=== PATIENT | female | born 1960 | race Caucasian/White ===

== ENCOUNTER 2018-04-14 19:01 | Emergency (ER) | payer OTHER ==
[~2018-04-14] VITALS: Ht 160 cm; Wt 66.2 kg
[2018-04-14 20:16] LABS: ABSOLUTE BASOPHIL COUNT 0.1 /CUMM (0.0-0.2); ABSOLUTE EOSINOPHIL COUNT 0.3 /CUMM (0.0-0.7); ABSOLUTE GRANULOCYTE CT 5.2 /CUMM (1.4-6.5); ABSOLUTE LYMPH COUNT 2.2 /CUMM (1.2-3.4); ABSOLUTE MONOCYTE COUNT 0.5 /CUMM (0.10-0.60); BASOPHIL % 0.6 % (0.0-2.0); EOSINOPHIL % 3.3 % (0-5); GRANULOCYTE % 63.1 % (42.2-75.2); HEMATOCRIT 37.6 % (37-47); MEAN CORPUSCULAR HGB 29.1 PG (27.0-31.0); MEAN CORPUSCULAR HGB CONC 33.4 G/DL (33.0-37.0); MEAN CORPUSCULAR VOLUME 87.2 FL (81.0-99.0); MEAN PLATELET VOLUME 8.7 FL (7.4-10.4); PLATELET COUNT 374 /CUMM (130-400); RBC DISTRIBUTION WIDTH 16.4 % (11.5-14.5); RED BLOOD CELL CT 4.32 /CUMM (4.20-5.40); WHITE BLOOD CELL COUNT 8.3 /CUMM (4.8-10.8)
[2018-04-14] MEDS ORDERED: FENOFIBRATE145 M1 PO (20:35)
[2018-04-14] MEDS ORDERED: LEVOTHYROXINE25 MCG PO (20:35)
[2018-04-14] MEDS ORDERED: HUMALOG100 UNIT/2 SC (20:36)
[2018-04-14] MEDS ORDERED: LANTUS SOL100 UNIT/1 SC (20:36)
[2018-04-14] MEDS ORDERED: DIGOX250 MCG PO (20:36)
[2018-04-14] MEDS ORDERED: LIPITOR80 M1 PO (20:37)
[2018-04-14] MEDS ORDERED: COUMADIN2 M1 PO (20:37)
[2018-04-14] MEDS ORDERED: ASPIRIN EC81 M1 PO (20:37)
--- NOTE | 2018-04-14 21:00 | ED GI/GU/ABDOMINAL COMPLAINT ---
History of Present Illness General Chief Complaint: Abdominal Pain/Flank Pain Stated Complaint: BIBA ABD PAIN Source: patient Exam Limitations: no limitations Vital Signs & Intake/Output Vital Signs & Intake/Output Vital Signs Date Time Temp Pulse Resp B/P B/P Pulse O2 O2 Flow FiO2 Mean Ox Delivery Rate 04/15 0542 98.4 86 18 150/70 99 04/15 0035 97.9 64 18 143/68 95 Room Air 04/14 2304 98.2 74 18 137/61 96 Room Air Room Air 04/14 1907 98.0 75 18 159/88 96 Room Air ED Intake and Output 04/15 0000 04/14 1200 Intake Total Output Total Balance Patient 146 lb Weight Weight Reported by Patient Measurement Method Allergies Coded Allergies: No Known Drug Allergies (NKDA 04/14/18) Reconcile Medications Aspirin (Ecotrin*) 81 MG TABLET.DR 1 TAB PO QAM HEART/BLOOD (Reported) Atorvastatin Calcium (Lipitor) 80 MG TABLET 1 TAB PO QPM CHOLESTEROL ( Reported) Digoxin (Digox) (Unknown Strength) TABLET (Unknown Dose) PO DAILY HEART ( Reported) Fenofibrate Nanocrystallized (Fenofibrate) 145 MG TABLET 1 TAB PO DAILY CHOLESTEROL/TRIGLYCERIDES (Reported) Insulin Glargine,Hum.rec.anlog (Lantus Solostar) 100 UNIT/ML (3 ML) INSULN.PEN 16 UNITS SC QPM DM (Reported) Insulin Lispro (Humalog) 100 UNIT/ML VIAL 5 UNITS SC QAM DM (Reported) Levothyroxine Sodium 25 MCG TABLET 1 TAB PO DAILY AC THYROID (Reported) Warfarin Sodium (Coumadin) 2 MG TABLET 1 TAB PO QPM BLOOD THINNER (Reported) Triage Note: PT BIBA FROM HOME C/O DIFFUSE ABD PAIN FOR 1 WEEK. +N, -V/D. FINGERSTICK BY EMS 139. PT DENIES UTI S/S. LAST BM WAS YESTERDAY AND WAS NORMAL. PT STATES ABD FEELS BLOATED AND "HARD". PAIN WORSE ACROSS UPPER ABDOMEN. "WHEN I PUSH ON IT, IT FEELS BETTER" "I DON'T HAVE ANY AIR CONDITIONING IN MY APRTMENT, THAT MIGHT HAVE SOMETHING TO DO WITH IT" "I FEEL MISERABLE" Triage Nurses Notes Reviewed? yes ? N Is pt currently ? No HPI: Pt is a 58 y/o F PMHx s/p DC, artificial valve replacement 2013 on coumadin, DM2 on insulin, polyneuropathy presenting with abdominal pain x 4 days. Pt states he first noted diffuse abdominal discomfort while at home. Pt states that discomfort improves post-prandially. Pt admits to some nausea and bloating as well. Pt has not changed her diet, she eats every meal at home, denies eating greasy foods. Pt denies V/D/C, heartburn, foul taste in mouth, cp, palpitations, SOB, dysuria, polyuria, hematura, flank pain,fevers, chills, diaphoresis. (Romain Mello PA-C) Past History Travel History Traveled to [place] past 21 day No Medical History Any Pertinent Medical History? see below for history Neurological: CVA Cardiovascular: hypertension, myocardial infarction Endocrine: diabetes Surgical History Surgical History: artificial heart valve Psychosocial History What is your primary language Hebrew Tobacco Use: Quit >30 days ago ETOH Use: occasional use Illicit Drug Use: denies illicit drug use Family History Hx Contributory? No (Romain Mello PA-C) Review of Systems Review of Systems Constitutional: Denies: see HPI. Respiratory: Denies: see HPI. Cardiovascular: Denies: see HPI. GI: Reports: see HPI. Genitourinary: Denies: see HPI. Hematologic/Endocrine: Denies: see HPI. All Other Systems: Reviewed and Negative (Romain Mello PA-C) Physical Exam Physical Exam General Appearance: well developed/nourished, no apparent distress, alert, awake Head: atraumatic, normal appearance Eyes: Bilateral: normal appearance. Ears, Nose, Throat, Mouth: moist mucous membrane Neck: normal inspection, supple, full range of motion Respiratory: normal breath sounds, chest non-tender, lungs clear Cardiovascular: regular rate/rhythm, murmur Peripheral Pulses: 2+ radial (R), 2+ radial (L) Gastrointestinal: normal bowel sounds, soft, non-tender, no organomegaly Extremities: normal range of motion Skin: intact, normal color, warm/dry Core Measures ACS in differential dx? Yes Sepsis Present: No Sepsis Focused Exam Completed? No (Romain Mello PA-C) Progress Differential Diagnosis: appendicitis, biliary colic, bowel obstruction, colon cancer, cholecystitis, diverticulitis, gastritis, ischemic bowel, inflamm bowel dis, kidney stone, pancreatitis, peptic ulcer, PUD/GERD, UTI/pyelo Plan of Care: Orders Procedure Date/time Status EKG 04/14 2352 Active TROPONIN LEVEL 04/145 Complete EKG 04/14 2119 Active URINALYSIS 04/14 1904 Active TROPONIN LEVEL 04/14 1904 Complete LIPASE 04/14 1904 Complete COMPREHENSIVE METABOLIC PANEL 04/14 1904 Complete CBC WITHOUT DIFFERENTIAL 04/14 1904 Complete Laboratory Tests 04/15/18 0032: Troponin I 0.04 04/14/18 1930: Anion Gap 9, Estimated GFR > 60, BUN/Creatinine Ratio 18.3, Glucose 134 H, Calcium 9.4, Total Bilirubin 1.0, AST 40 H, ALT 34, Alkaline Phosphatase 75, Troponin I 0.03, Total Protein 7.9, Albumin 4.5, Globulin 3.4, Albumin/Globulin Ratio 1.3, Lipase 91, CBC w Diff NO MAN DIFF REQ, RBC 4.32, MCV 87.2, MCH 29.1, MCHC 33.4, RDW 16.4 H, MPV 8.7, Gran % 63.1, Lymphocytes % 26.4, Monocytes % 6.6, Eosinophils % 3.3, Basophils % 0.6, Absolute Granulocytes 5.2, Absolute Lymphocytes 2.2, Absolute Monocytes 0.5, Absolute Eosinophils 0.3, Absolute Basophils 0.1 Diagnostic Imaging: Viewed by Me: CT Scan. Discussed w/RAD: CT Scan. Radiology Impression: PATIENT: CATHIE BRAMBILA PRESENT AGE: 58 PATIENT ACCOUNT NO: [id number] : 58 LOCATION: [facility] ORDERING PHYSICIAN: Romain Mello PA-C SERVICE DATE: 04/14/18 EXAM TYPE: CAT - CT ABD & PELVIS W IV CONTRAST EXAMINATION: CT ABDOMEN AND PELVIS WITH CONTRAST CLINICAL INFORMATION: Abdominal pain, epigastric, nausea x1 week COMPARISON: None TECHNIQUE: Multidetector volumetric imaging was performed of the abdomen and pelvis following IV administration of 95 mL of Optiray 320 intravenous contrast. Sagittal and coronal reformatted images were obtained on the technologist's workstation. DLP: 331 mGy-cm FINDINGS: LUNG BASES: The visualized lung bases are unremarkable. LIVER, GALLBLADDER, AND BILIARY TREE: The liver is diffusely low in attenuation. No focal lesion. No intrahepatic biliary dilatation. Gallbladder is not significantly distended. There are several dense stones within the gallbladder lumen measuring up to 1.1 cm. PANCREAS: Unremarkable. SPLEEN: Unremarkable. ADRENAL GLANDS: Unremarkable. KIDNEYS AND URETERS: The kidneys enhance symmetrically. There is a partially exophytic hypodense lesion in the upper pole region of the right kidney consistent with a cyst measuring up to 2 cm. No hydronephrosis. No radiodense stones noted. BLADDER: Unremarkable. GASTROINTESTINAL TRACT: The antrum of the stomach appears somewhat narrow which could be related to peristalsis. There are no secondary signs to suggest inflammation of the distal stomach or duodenum. However, there are multiple lymph nodes surrounding the proximal portion of the duodenum. These measure up to 7 mm in short axis diameter. There are no dilated loops of large or small bowel. No free fluid in the abdomen or pelvis. Scattered sigmoid diverticula without CT evidence for acute diverticulitis. ABDOMINAL WALL : No significant hernia is appreciated. VASCULAR: Moderate atherosclerotic calcific disease involving the abdominal aorta and branches. PELVIC VISCERA: Uterus and ovaries appear within normal limits. No significant free fluid within the pelvis. OSSEOUS STRUCTURES: No acute findings. IMPRESSION: 1. Increased lymphadenopathy adjacent to the first and second portion of the duodenum suggesting underlying infection, inflammation or less likely malignancy. If there is persistent clinical concern MRCP or ERCP may be helpful for further evaluation. 2. Hepatic steatosis. 3. Cholelithiasis without CT evidence for acute cholecystitis. 4. Diverticulosis without CT evidence for acute diverticulitis. DICTATED BY: Kaylee Galvin MD DATE/TIME DICTATED:04/14/182235 COMPLIANCE DIRECTOR:BO DATE/TIME TRANSCRIBED:04/14/182235 CONFIDENTIAL, DO NOT COPY WITHOUT APPROPRIATE AUTHORIZATION. <Electronically signed in Other Vendor System> SIGNED BY: Kaylee Galvin MD 04/14/18 2250 Initial ED EKG: Sinus at 67, LVH, no old ekg Comments: Patient reevaluated at 2240. Patient currently has no pain. Patient states "I farted and the pain disappeared". Abdomen soft and nontender. Waiting for CT results. Patient currently asymptomatic. CT scan results reviewed with patient. Overall lab work is nonactionable. LFTs are within normal limits. Troponin is also negative. Patient does have cholelithiasis on her CT scan which could be causing her pain. We will have her follow-up with surgery and GI. Patient will be kept for 1 more set of troponins and repeat EKG. If these are normal and unchanged patient will be displayed at that time. Patient signed out to Dr. Mccrary pending these results. (Romain Mello PA-C) Departure Departure Time of Disposition: 2307 Disposition: STILL A PATIENT Condition: Stable Clinical Impression Primary Impression: Epigastric pain Secondary Impressions: Cholelithiasis, Diverticulosis Referrals: Earl TAO,Owen Yanez MD,Yan Eddy MD,Esequiel Jules (PCP/Family) Additional Instructions: Follow-up with GI and surgery within the week. Return to emergency department immediately with any worsening symptoms. Please go over all results of today's visit with your primary care doctor. Contact your primary care doctor to let them know you were here in the emergency room. There may be nonspecific findings which may not be related to your visit today here in the emergency room but may require further evaluation and chronic monitoring by your primary care doctor. If you had a laceration today the chance of foreign body always remains. You should follow-up with your primary care doctor for recheck in 3-5 days for a wound check. If you had an x-ray done there is a chance that a fracture could have been missed on initial read and you should follow-up with your primary care doctor for repeat x-rays if symptoms persist. If your blood pressure was elevated here in the emergency room please have rechecked by our primary care doctor within the next 48. If you were prescribed a narcotic here in the emergency room or any type of controlled substances you're not allowed to drive while taking this medication or operate any type of heavy machinery. Narcotics can make you feel lightheaded dizziness nausea and can cause constipation. You may need to bean picker machine operator a stool softener. Thank you for choosing [facility] emergency room. Please return to the emergency room immediately if you have any other concerns worsening of symptoms. Departure Forms: Customer Survey General Discharge Information (Romain Mello PA-C) Departure Comments 04/15/18 The patient has complete resolution of symptoms. No abdominal pain. Serial troponins are essentially unchanged. Repeat EKG is unchanged. She will follow- up with her doctor this week. Low-fat diet. Return to the emergency department if vomiting or fever or symptoms worsen (Mike Mccrary DO) ED Attending Observation Initial Observation Note: I have seen and personally examined CATHIE BRAMBILA on 04/14/18 at 2310. I agree with the current emergency department documentation. The disposition (admission or discharge) is uncertain at this time, she needs a period of observation for the following reason(s): The ED Nurse caring for this patient has been personally informed as to what the patient is being observed for. (Romain Mello PA-C) Initial Observation Note: I have seen and personally examined CATHIE BRAMBILA on 04/15/18 at 0328. I agree with the current emergency department documentation. The disposition (admission or discharge) is uncertain at this time, she needs a period of observation for the following reason(s): The ED Nurse caring for this patient has been personally informed as to what the patient is being observed for. (Mike Mccrary DO)
--- NOTE | 2018-04-14 22:50 | CT SCAN REPORT ---
EXAMINATION: CT ABDOMEN AND PELVIS WITH CONTRAST CLINICAL INFORMATION: Abdominal pain, epigastric, nausea x1 week COMPARISON: None TECHNIQUE: Multidetector volumetric imaging was performed of the abdomen and pelvis following IV administration of 95 mL of Optiray 320 intravenous contrast. Sagittal and coronal reformatted images were obtained on the technologist's workstation. DLP: 331 mGy-cm FINDINGS: LUNG BASES: The visualized lung bases are unremarkable. LIVER, GALLBLADDER, AND BILIARY TREE: The liver is diffusely low in attenuation. No focal lesion. No intrahepatic biliary dilatation. Gallbladder is not significantly distended. There are several dense stones within the gallbladder lumen measuring up to 1.1 cm. PANCREAS: Unremarkable. SPLEEN: Unremarkable. ADRENAL GLANDS: Unremarkable. KIDNEYS AND URETERS: The kidneys enhance symmetrically. There is a partially exophytic hypodense lesion in the upper pole region of the right kidney consistent with a cyst measuring up to 2 cm. No hydronephrosis. No radiodense stones noted. BLADDER: Unremarkable. GASTROINTESTINAL TRACT: The antrum of the stomach appears somewhat narrow which could be related to peristalsis. There are no secondary signs to suggest inflammation of the distal stomach or duodenum. However, there are multiple lymph nodes surrounding the proximal portion of the duodenum. These measure up to 7 mm in short axis diameter. There are no dilated loops of large or small bowel. No free fluid in the abdomen or pelvis. Scattered sigmoid diverticula without CT evidence for acute diverticulitis. ABDOMINAL WALL: No significant hernia is appreciated. VASCULAR: Moderate atherosclerotic calcific disease involving the abdominal aorta and branches. PELVIC VISCERA: Uterus and ovaries appear within normal limits. No significant free fluid within the pelvis. OSSEOUS STRUCTURES: No acute findings. IMPRESSION: 1. Increased lymphadenopathy adjacent to the first and second portion of the duodenum suggesting underlying infection, inflammation or less likely malignancy. If there is persistent clinical concern MRCP or ERCP may be helpful for further evaluation. 2. Hepatic steatosis. 3. Cholelithiasis without CT evidence for acute cholecystitis. 4. Diverticulosis without CT evidence for acute diverticulitis.
[2018-04-15 05:42] VITALS: BP 150/70
== END 2018-04-15 05:46 ==
LOC: ERH 19:01
PROVIDERS: Physician Assistant Medical
DX: K80.20 Calculus of gallbladder without cholecystitis without obstruction (principal); K57.90 Diverticulosis of intestine, part unspecified, without perforation or abscess without bleeding
CPT/HCPCS: 74177; 93005; 93010